=== PATIENT | female | born 1995 | race Caucasian/White ===

== ENCOUNTER 2019-08-25 12:55 | Emergency (ER) | payer SELFPAY ==
[~2019-08-25] VITALS: Ht 156.2 cm; Wt 54.2 kg
[2019-08-25 13:02] VITALS: BP 102/60
--- NOTE | 2019-08-25 13:11 | NUR ---
Note undone in EDM - 08/25/19 at 1318 by [email or web address] C/O VAGINAL BLEEDING, LOWER ABDOMINAL PAIN X 3 DAYS, DIARRHEA X TODAY. DENIES DYSURIA. LMP 08/14/19. ABD SOFT. PATIENT STATES PAIN OF 3/10 AT THIS TIME. PATIENT POSITIONED FOR COMFORT; HOB ELEVATED; BEDRAILS UP X1; BED DOWN. ER MADE AWARE OF PT STATUS.
--- NOTE | 2019-08-25 13:18 | NUR ---
C/O VAGINAL BLEEDING, LOWER ABDOMINAL PAIN X 3 DAYS, DIARRHEA X TODAY. DENIES DYSURIA. LMP 07/18/19. ABD SOFT. PATIENT STATES PAIN OF 3/10 AT THIS TIME. PATIENT POSITIONED FOR COMFORT; HOB ELEVATED; BEDRAILS UP X1; BED DOWN. ER MD MADE AWARE OF PT STATUS.
[2019-08-25 13:48] LABS: BASOPHILS % (AUTO) 0.5 % (0.0-2.0); EOSINOPHILS # (AUTO) 0.2 K/uL (0-0.4); HEMATOCRIT 38.9 % (36-48); HEMOGLOBIN 12.8 g/dL (12.0-16.0); LYMPHOCYTES # (AUTO) 1.6 K/uL (2.5-16.5); LYMPHOCYTES % (AUTO) 27.6 % (20.5-51.1); MEAN CORPUSCULAR HEMOGLOBIN 31 pg (27-31); MEAN CORPUSCULAR HGB CONC 33 g/dL (33-37); MEAN CORPUSCULAR VOLUME 92.2 fL (80-94); MONOCYTES # (AUTO) 0.5 K/uL (0.8-1.0); MONOCYTES % (AUTO) 9.1 % (1.7-9.3); NEUTROPHILS # (AUTO) 3.5 K/uL (1.8-7.7); NEUTROPHILS % (AUTO) 58.8 % (42.2-75.2); PLATELET COUNT (AUTO) 197 K/uL (140-450); RED BLOOD CELL COUNT(AUTO) 4.21 MIL/uL (4.20-5.40); RED CELL DISTRIBUTION WIDTH 13.3 % (11.6-13.7); WHITE BLOOD COUNT (AUTO) 5.9 K/uL (4.8-10.8)
[2019-08-25 14:03] LABS: APPEARANCE,URINE SL CLOUDY (CLEAR); BILIRUBIN,URINE NEGATIVE (NEGATIVE); BLOOD, URINE NEGATIVE (NEGATIVE); COLOR,URINE YELLOW (YELLOW); LEUKOCYTE ESTERASE ,URINE NEGATIVE (NEGATIVE); NITRITE, URINE NEGATIVE (NEGATIVE); PH,URINE 6.5 (5.0-9.0); UGLUCOSE NEGATIVE (NEGATIVE)
--- NOTE | 2019-08-25 14:10 | NUR ---
PT RESTING IN BED AWAKE AND ALERT. RESP EVEN AND UNLABORED. DENIES ANY PAIN AT THIS TIME. BED IN LOWEST POSITION, X2 SIDE RAILS RAISED
[2019-08-25 14:29] VITALS: BP 102/60
== END 2019-08-25 14:29 | disposition home or self-care (01) ==
LOC: MED 12:55
DX: O20.0 Threatened abortion (principal); Z3A.01 Less than 8 weeks gestation of pregnancy
CPT/HCPCS: 36415; 76801; 76817; 81003; 81025; 84702; 85025; 86900; 86901; 99285; Q0092